=== PATIENT | female | born 1950 | race Caucasian/White ===

== ENCOUNTER → 2017-03-06 | Outpatient (CLI) | payer BC ==
[~2017-03-06] MED LIST: DUO-KAPS1 CAP PO; PROMETRIUM100 MG/CAP PO; VITAMIN D1000 IU PO; [UNRECOGNIZED DRUG - OTHER]; [UNRECOGNIZED DRUG - OTHER]
== END ==
LOC: COL.RAD 02-20 09:45
DX: D25.9 Leiomyoma of uterus, unspecified (principal); N83.201 Unspecified ovarian cyst, right side

== ENCOUNTER → 2018-06-24 | Outpatient (CLI) | payer BC | LOC: MC.RAD 11:20 | DX: Z12.31 Encounter for screening mammogram for malignant neoplasm of breast (principal) ==

== ENCOUNTER → 2019-02-19 | Outpatient (CLI) | payer MEDICARE, BC | LOC: COL.RAD 02-18 11:15 | DX: N83.209 Unspecified ovarian cyst, unspecified side (principal); N28.1 Cyst of kidney, acquired ==